=== PATIENT | female | born 1950 | race Caucasian/White ===

== ENCOUNTER 2017-04-27 06:39 | Day surgery (SDC) | payer MEDICAID ==
[~2017-04-27] VITALS: Ht 157.5 cm; Wt 84.1 kg
[~2017-04-27 06:39] MED LIST: CYCLOPENTOLATE HCL 1% 2 ML OPHTHALMIC SOLUTION ONE; FLURBIPROFEN SODIUM 0.03% 2.5 ML OPHTHALMIC SOLUTION ONE; PHENYLEPHRINE HCL 2.5% 2 ML OPHTHALMIC SOLUTION ONE; RINGERS SOLUTION,LACTATED 500 ML IV ONE; TROPICAMIDE 1% 2 ML OPHTHALMIC SOLUTION ONE
[2017-04-27] MEDS ORDERED: ASPI-1182 PO (07:08)
[2017-04-27] MEDS ORDERED: AMLO2.5T PO (07:08)
[2017-04-27] MEDS ORDERED: FISH1CAP63 PO (07:08)
[2017-04-27] MEDS ORDERED: LEVO50 PO (07:08)
[2017-04-27] MEDS ORDERED: ATOR40TA28 PO (07:08)
[2017-04-27] MEDS ORDERED: METF500T4 PO (07:08)
[2017-04-27] MEDS ORDERED: CARV6 PO (07:08)
[2017-04-27] MEDS ORDERED: TRAZ-144 PO (07:08)
[2017-04-27] MEDS ORDERED: ACET500C4 PO (07:09)
[2017-04-27] MEDS: PHENYLEPHRINE HCL 2.5% 2 ML OPHTHALMIC SOLUTION OS SCH ×3 (07:13→07:26)
[2017-04-27] MEDS: TROPICAMIDE 1% 2 ML OPHTHALMIC SOLUTION OS SCH ×3 (07:13→07:26)
[2017-04-27] MEDS: CYCLOPENTOLATE HCL 1% 2 ML OPHTHALMIC SOLUTION OS SCH ×3 (07:14→07:26)
[2017-04-27] MEDS: FLURBIPROFEN SODIUM 0.03% 2.5 ML OPHTHALMIC SOLUTION OS SCH ×3 (07:14→07:27)
[2017-04-27 07:22] LABS: GLUCOMETER DEV NAME(LOC) SDS 5; GLUCOSE,POINT OF CARE 196 MG/DL (70-110)
[2017-04-27] MEDS ORDERED: ACETAMINOPHEN 1000 MG/ISO-OSM 100 ML IV SCH (08:25)
[2017-04-27] MEDS ORDERED: FentaNYL CITRATE-PF 100 MCG/2 ML VIAL IVP ONE (12:00)
[2017-04-27] MEDS ORDERED: MIDAZOLAM HCL 2 MG/2 ML VIAL IVP ONE (12:00)
== END 2017-04-27 09:00 | disposition home or self-care (01) ==
LOC: SURGERY 06:39
PROVIDERS: ATTEND Ophthalmology
DX: E11.36 Type 2 diabetes mellitus with diabetic cataract (principal); H25.12 Age-related nuclear cataract, left eye; I10 Essential (primary) hypertension; E78.00 Pure hypercholesterolemia, unspecified; M19.90 Unspecified osteoarthritis, unspecified site; E66.9 Obesity, unspecified; Z79.82 Long term (current) use of aspirin; Z68.33 Body mass index [BMI] 33.0-33.9, adult; Z98.41 Cataract extraction status, right eye; Z90.89 Acquired absence of other organs; Z98.890 Other specified postprocedural states; Z79.84 Long term (current) use of oral hypoglycemic drugs; Z79.899 Other long term (current) drug therapy
CPT/HCPCS: 66984; 82962; 93005; C1780; J0131; J2250; J3010; J7120